=== PATIENT | male | born 1945 | race Caucasian/White ===

== ENCOUNTER → 2016-11-01 | Outpatient (CLI) | payer OTHER, MEDICARE ==
[~2016-11-01] MED LIST: ADRENACLIC0.3 MG/0.3 IM; ASPIR 8181 MG PO; FENOFIBRATE160 MG PO; FLOMAX0.4 MG PO; TENORMIN25 MG PO
--- NOTE | ~2016-11-01 | O ---
[facility] [place] [address] OPERATIVE REPORT Name: CLINTON REEDER [facility]#: [id number] Admission: 11/01/16 Attend Phys: Harmeet Gambino MD Discharge: Date of : 47 Report #: [id number] THIS REPORT FOR: //name// CC: [facility] physician/PCP Harmeet Gambino PREOPERATIVE DIAGNOSIS: Distal ureteral stone. POSTOPERATIVE DIAGNOSIS: Uric acid distal ureteral stone. OPERATION PERFORMED: Fluoroscopy with visualization of stones. PREOPERATIVE INDICATION: The patient has a relatively large stone seen on CT scan in the distal right ureter. Anticipating that these were calcium stones, he comes today for shock wave lithotripsy. DESCRIPTION OF PROCEDURE: Under fluoroscopy; however, the stones could not be visualized estimating them that they are probably uric acid. He was minimally sedated for this. He tolerated it well and was able to return to recovery and then be discharged in good shape. We will plan alternative treatment because of the poor visualization of the stones under fluoroscopy. By: [id number] Harmeet Gambino MD /nt
--- NOTE | ~2016-11-01 | EKG ---
[place] [address] [facility] [place] [address] ELECTROCARDIOGRAM REPORT Name: CLINTON REEDER Room #: REG CLI .Kaz#: [id number] Admission: 11/01/16 Attend Phys: Harmeet Gambino MD Discharge: Date of : 47 Report #: [id number] THIS REPORT FOR: //name// [facility] Test Date: 2016-11-01 Test Time: 10:02:19 Pat Name: CLINTON REEDER Department: Room: Gender: Doctor Of Chiropractic: BERON[place] : 1945 Requested By: Harmeet Gambino Order Number: [id number] MD: Chandana Sanchez Measurements Intervals [place] Rate: 61 P: 23 MA: 173 QRS: 2 QRSD: 104 T: -23 QT: 367 QTc: 370 Interpretive Statements Sinus rhythm Borderline T abnormalities, inferior leads No previous ECG available for comparison Electronically Signed On 11-01-2016 17:18:49 CDT by Chandana Sanchez [email or web address] <ELECTRONICALLY SIGNED> By: Chandana Sanchez MD, [facility] 11/01/16 1718 1002 1002 Chandana Sanchez MD, FACC /EPI
== END ==
LOC: LITH 09:36
DX: N20.0 Calculus of kidney (principal); Z53.9 Procedure and treatment not carried out, unspecified reason; I10 Essential (primary) hypertension; E78.00 Pure hypercholesterolemia, unspecified; N40.0 Benign prostatic hyperplasia without lower urinary tract symptoms; Z98.890 Other specified postprocedural states; Z88.8 Allergy status to other drugs, medicaments and biological substances; Z79.899 Other long term (current) drug therapy; Z79.82 Long term (current) use of aspirin